=== PATIENT | female | born 1960 | race Caucasian/White ===

== ENCOUNTER 2016-09-27 14:20 | Inpatient (IN) | payer OTHER ==
--- NOTE | ~2016-09-27 | HP ---
History And Physical [place] [address] [facility] [place]. [address] NAME: KALEB ELIZONDO : 56 STATUS : ADM IN [facility]#: [id number] AGE: 56 ADM/REG DATE : 09/27/16 MR#: [id number] REPORT SERV DATE: 09/27/16 DICTATED BY: LEÓN GAN DATE: 09/27/16 REPORT STATUS : Draft TRANSCRIBED BY: MODL DATE: 09/27/16 DATE OF ADMISSION: 09/27/2016 REASON FOR ADMISSION: Shortness of breath. PRIMARY CARE DOCTOR: Unclear, goes to multiple doctors possibly Dr. Schmidt. HISTORY OF PRESENT ILLNESS: This is a pleasant 56-year-old female. She has been smoking for possibly 60 pack years. Still smokes less than a pack a day despite being on home oxygen 2 L in the past year to two years, comes in with significant shortness of breath for past two months, progressive shortness of breath, positive orthopnea, productive cough, wheeze. No recent fevers, chills, nausea, vomiting, diarrhea, chest pain, or chest pressure. She has gone apparently two or three different doctors. She has received prednisone. She has received Zithromax. She has had increased her oxygen up to 4 L. The patient feels that she has pneumonia, increased fatigue. PAST MEDICAL/SURGICAL HISTORY: See above. REVIEW OF SYSTEMS: Done, see HPI. Otherwise, negative. ALLERGIES: NO KNOWN DRUG ALLERGIES. SOCIAL: Continues to smoke at least 60 pack years. No alcohol. No drug use. FAMILY HISTORY: Hypertension at least one parent. HOME MEDICATIONS: See MAR, continue what is relevant. OBJECTIVE: VITAL SIGNS: They are 129/62, 98 temp, 93 pulse, 18 respirations, she was 92% on 2 L. Now, I am putting her up to 3.5 L, she is above 92. GENERAL: No acute distress. HEENT: PERRLA. No scleral icterus. CARDIOVASCULAR: Regular rate and rhythm. No murmur. RESPIRATORY: Bibasilar crackles. Minimal expiratory wheeze. ABDOMEN: Nontender, nondistended. Positive bowel sounds. EXTREMITIES: No edema. No ecchymosis. NEURO: GCS 15. A and O x4. LABS: She has a white count 13,000, hemoglobin 15.6, 212,000 platelets actually. Urinalysis is clean. 4.3 potassium, 145 sodium, 29 bicarb, 0.89 creatinine, 20 BUN, 227 sugar. Albumin 219. LFTs otherwise normal. EKG she has a normal sinus rhythm, PVC. No ischemic ST-T changes. Chest x-ray is a poor film because it looks under penetrated possibly, but it does seem to have bibasilar alveolar infiltration. History And Physical [address] [address] NAME: KALEB ELIZONDO : 56 STATUS : ADM IN PAT#: [id number] AGE: 56 ADM/REG DATE : 09/27/16 MR#: [id number] REPORT SERV DATE: 09/27/16 DICTATED BY: LEÓN GAN DATE: 09/27/16 REPORT STATUS : Draft TRANSCRIBED BY: REGGIE DATE: 09/27/16 ASSESSMENT AND PLAN: 1. Severe sepsis. 2. Due to pneumonia with outpatient treatment failure to Zithromax. 3. Acute on chronic hypoxic respiratory failure. 4. Consideration for possible diabetes given hyperglycemia complicated by steroids. 5. Continued smoking. PLAN: I will go ahead and admit this patient panculture, was on Zithromax, try Levaquin. I do not want to increase the risk of C. diff, so I will give Florastor, Solu-Medrol, Brovana, budesonide. I will also add her home dose of Spiriva. Given her orthopnea, I will also get a BNP. If more than 100, I will diurese her Bumex. She complained to me of defecating while she coughs at times after she had her hysterectomy. From her past surgical history as a result, we will get a CT abdomen and pelvis, consider possible reduced sphincter tone. Influenza swab will be called if it is positive. Get hemoglobin A1c. See rest of my orders. All questions were answered. It took well over 60 minutes to do. Reference [employer] and [employer]. The patient will be in observation. VERONICA/REGGIE León Gan DO / [id number] CC: MD Burke Anne M.D.
--- NOTE | ~2016-09-27 | DS ---
Discharge Summary [facility] [address] [facility] [place]. [address] NAME: KALEB ELIZONDO : 56 STATUS : DIS IN PAT#: [id number] AGE: 56 ADM/REG DATE : 09/27/16 MR#: [id number] REPORT SERV DATE: 10/02/16 DICTATED BY: BURKE PETERSON DATE: 10/01/16 REPORT STATUS : Draft TRANSCRIBED BY: MODL DATE: 10/01/16 ADMISSION DATE: 09/27/2016 DISCHARGE DATE: 10/01/2016 DISCHARGE DIAGNOSES: Include: 1. Severe chronic obstructive pulmonary disease and acute exacerbation with wheezing in the setting of continued tobacco use and chronic home O2 use. 2. Diabetes type 2, with a most recent hemoglobin A1c of 7.9. 3. Hypertension. 4. Hypoalbuminemia. 5. Morbid obesity. 6. Pneumonia has been ruled out. DISCHARGE MEDICATIONS: Are as follows: aspirin 81 mg daily; Wellbutrin XL 300 mg daily, a prescription was written for this; Levaquin 750 mg daily for two more doses; Mei 180 mg daily; Singulair 10 mg daily; Spiriva one capsule inhaled daily; metformin ER 500 mg twice a day; albuterol nebulizers 3 times a day p.r.n. for shortness of breath and wheezing; prednisone 40 mg daily for two more days, prescription was written; Breo Ellipta 200/25 one puff inhaled daily; hydrochlorothiazide 25 mg daily to resume on 10/02/2016; budesonide 2 sprays nasally daily; lisinopril 10 mg daily to start 10/02/2016 prescription was written for this. HISTORY OF PRESENT ILLNESS: A pleasant but unfortunate 56-year-old, female, who presented with worsening shortness of breath. Please see initial H and P of Dr. Timoteo Ocampo, as patient was admitted to the Hospitalist Service for further evaluation and treatment. CONSULTS DURING THIS ADMISSION: Include case management director Dr. Myron Thorpe. PROCEDURES AND IMAGING DURING THIS ADMISSION: Include a CT of the abdomen and pelvis showing no bowel obstruction or inflammation, no mass, lesion or adenopathy within the abdomen or pelvis. Echocardiogram showing an ejection fraction of 50% with some mild diastolic dysfunction. CONTINUATION OF HOSPITAL COURSE: I began seeing this patient on 09/28/2016 where she was continuing to be quite short of breath particularly with exertional dyspnea. She was continuing to wheeze as well. She was continued on her Levaquin, Solu-Medrol, increased O2 requirements, and nebulizer therapy. She underwent the above-described testing, and she made slow improvement with her wheezing and shortness of breath. Consult was placed to Dr. Myron Thorpe who is her outpatient case management director, and he followed her here. Under further review given the negative procalcitonin, lab values, chest x-rays that were not indicative of a pneumonia, and the patient has been afebrile as well, I have ruled out a pneumonia as this is likely just exacerbation of her severe COPD. She was finally able to be weaned back down to 2 L of oxygen which she is currently on at home. I counseled her extensively on need for smoking cessation, and I have added Wellbutrin to her regimen in the Discharge Summary [address] [place]. [address] NAME: KALEB ELIZONDO : 56 STATUS : DIS IN PAT#: [id number] AGE: 56 ADM/REG DATE : 09/27/16 MR#: [id number] REPORT SERV DATE: 10/02/16 DICTATED BY: BURKE PETERSON DATE: 10/01/16 REPORT STATUS : Draft TRANSCRIBED BY: REGGIE DATE: 10/01/16 hopes that this will allow her to fully quit smoking which she was in agreement with. I have also added a lisinopril daily to her regimen given her history of hypertension and diabetes. She has made some clear clinical improvement on 10/01/2016 and was felt safe for discharge home with the above medication regimen and prescriptions, and instructed her to follow up with her primary care, Edwar Schmidt in the next two to three weeks and follow up with Dr. Myron Thorpe as prior scheduled. The patient was in agreement with this plan and so was discharged home. Please note greater than 30 minutes was spent on this discharge for medication teaching, followup planning, and further disposition. LESA/REGGIE Burke Peterson NP / [id number] CC: Sixto Dexter M.D.
--- NOTE | ~2016-09-27 | CN ---
Consultation Report [facility] [address] [place]. [address] NAME: KALEB ELIZONDO : 56 STATUS : ADM [facility]o PAT#: [id number] AGE: 56 ADM/REG DATE : 09/27/16 MR#: [id number] REPORT SERV DATE: 09/29/16 DICTATED BY: CANDICE THORPE DATE: 09/29/16 REPORT STATUS : Draft TRANSCRIBED BY: MODL DATE: 09/29/16 CONSULT DATE OF CONSULTATION: Thank you for the opportunity to consult on this patient. HISTORY OF PRESENT ILLNESS: Ms. Elizondo is a 56-year-old woman well known to our practice. She is followed in our office for her significant COPD on home oxygen complicated by ongoing tobacco abuse, hyperreactive airways disease, and seasonal allergies. She describes that she has been feeling sick for the past month or so. She has had at least 2 outpatient course of oral antibiotics and steroids and recently saw her supervisor quilting as well. Had some of her maintenance medications adjusted but continues to have significant shortness of breath and coughing. She was seen at Dr. Schmidt's office where she was still wheezing with very labored breathing, significant dyspnea despite all the different course of outpatient treatment and was brought to the hospital. She still has significant cough but has not been able to produce much sputum. She has had no persistent fevers, chills, or night sweats though she has had chest tightness, wheezing, and coughing. PAST MEDICAL HISTORY: Significant for COPD with tobacco abuse. She has a [id number] history and has not been able to quit. She is on supplemental oxygen. FAMILY HISTORY: Noncontributory to this acute presentation. SOCIAL HISTORY: As noted above positive for tobacco abuse. REVIEW OF SYSTEMS: Review of 10 systems was performed and is positive for what was noted above. PHYSICAL EXAMINATION: GENERAL: On exam, she is awake and alert, in no acute distress though she has audible variable wheezing even without the stethoscope. HEENT: Normocephalic and atraumatic. NECK: Supple. No lymphadenopathy. No JVD. CHEST: Symmetric with good expansion bilaterally. LUNGS: Her lungs peripherally are surprisingly clear. The wheezing seems to be mostly anterior in upper airway also with some rhonchi. CARDIOVASCULAR: She has S1 and S2 which are regular in rate and rhythm. ABDOMEN: Benign. EXTREMITIES: She has no edema. No clubbing. No cyanosis. ASSESSMENT AND PLAN: Acute exacerbation of chronic obstructive pulmonary disease. She has severe acute exacerbation of chronic obstructive pulmonary disease with failure of response to outpatient treatment. She has inspissated secretions and upper airway secretions and Consultation Report [address] [address] NAME: KALEB ELIZONDO : 56 STATUS : ADM [place] PAT#: [id number] AGE: 56 ADM/REG DATE : 09/27/16 MR#: [id number] REPORT SERV DATE: 09/29/16 DICTATED BY: CANDICE THORPE DATE: 09/29/16 REPORT STATUS : Draft TRANSCRIBED BY: REGGIE DATE: 09/29/16 symptoms in addition to her dyspnea. With her failure of response to outpatient treatment, we agree with initiating broad-spectrum antibiotic therapy. Her procalcitonin level is only 0.08 but again she does have a significant COPD exacerbation and has failed outpatient treatment. She is already on systemic steroids and we will continue to provide her with aggressive bronchodilator therapy and steroids. We appreciate the opportunity to participate in her care with you. Please not hesitate to contact me if I could be of any further assistance. ROB/REGGIE Candice Thorpe M.D. / [id number] CC: Sixto Dexter M.D.
[2016-09-27 13:08] LABS: BASOPHILS 0.2 %; BASOPHILS ABSOLUTE 0.02 10/3/uL (0.0-0.16); EOSINOPHILS 1.2 %; EOSINOPHILS ABSOLUTE 0.15 10/3/uL (0.0-0.53); HEMATOCRIT 50.8 % (36.0-48.0); HEMOGLOBIN 15.6 g/dL (12.0-16.0); IMMATURE GRANULOCYTES 0.5 %; IMMATURE GRANULOCYTES ABSOLUTE 0.06 10/3/uL (0.0-0.11); LYMPHOCYTES 16.7 %; LYMPHOCYTES ABSOLUTE 2.17 10/3/uL (0.67-4.30); MEAN CORPUS HGB CONC 30.7 g/dL (32.0-36.0); MEAN CORPUSCULAR HEMOGLOB 30.5 pg (26.0-34.0); MEAN CORPUSCULAR VOLUME 99.2 fL (80-100); MEAN PLATELET VOLUME 9.9 fL (9.2-13.0); MONOCYTES 4.8 %; MONOCYTES ABSOLUTE 0.63 10/3/uL (0.21-1.20); NEUTROPHILS 76.6 %; PLATELET COUNT 212 10/3/uL (150-400); RBC DISTRIBUTION WIDTH 14.6 % (12.0-16.0); RED CELL COUNT 5.12 10/6/uL (4.0-5.6)
[2016-09-27 13:11] LABS: MANUAL DIFF NO %
[2016-09-27 13:22] LABS: A/G RATIO 0.8 (0.7-1.9); ALBUMIN 2.9 G/DL (3.5-5.0); ALKALINE PHOSPHATASE 51 U/L (45-117); ASCORBIC ACID (UR NOT ORDER) NEG (NEG); BILIRUBIN, URINE NEGATIVE (NEG); BUN (BLOOD UREA NITROGEN) 20 MG/DL (6-23); CALCIUM, SERUM 8.9 MG/DL (8.5-10.4); CHLORIDE, SERUM 101 MMOL/L (96-112); CO2 (CARBON DIOXIDE) 39 MMOL/L (24-34); CREATININE 0.89 MG/DL (0.55-1.02); ER URINALYSIS TAT 0 Hrs 20 Mins; GFR AFRICAN AMERICAN 83 ML/MIN (>=60); GFR NON AFRICAN AMERICAN 71 ML/MIN (>=60); GLUCOSE, SERUM 227 MG/DL (60-99); KETONE, URINE NEGATIVE (NEG); LEUKOCYTE ESTERASE(NOT OR NEG (NEG); NITRITE (URINE) NEG (NEG); POTASSIUM, SERUM 4.3 MMOL/L (3.5-5.3); SGOT(AST) 10 U/L (5-40); SGPT(ALT) 42 U/L (5-65); SODIUM, SERUM 145 MMOL/L (135-148); TOTAL BILIRUBIN 0.4 MG/DL (0-1.2); TOTAL PROTEIN 6.5 G/DL (6.0-8.5); WBC (NOT ORDERED) (RFLEX) 1 (0-5)
[2016-09-27 13:23] LABS: GLOBULIN 3.6 G/DL (2.5-4.1)
[2016-09-27] MEDS ORDERED: ALBUTEROL0.083 % INH (14:50)
[2016-09-27] MEDS ORDERED: ALLEGRA180 PO (14:50)
[2016-09-27] MEDS ORDERED: HALF81 PO (14:51)
[2016-09-27] MEDS ORDERED: BREO ELLIPTA 21 EACH INH (14:51)
[2016-09-27] MEDS ORDERED: HYDROCHLOROT25 MG PO (14:52)
[2016-09-27] MEDS ORDERED: GLUMETZA500 MG PO (14:53)
[2016-09-27] MEDS ORDERED: SINGULAIR1 PO (14:53)
[2016-09-27] MEDS ORDERED: BUDESONIDE 32 MCG NAS (14:59)
[2016-09-27] MEDS ORDERED: SPIRIVA INH (15:00)
[2016-09-27] MEDS ORDERED: VENTOLIN HFA INH (15:01)
[2016-09-27] MEDS ORDERED: P20 PO (15:02)
[2016-09-27] MEDS ORDERED: ZITH250 PO (15:03)
[2016-09-27 18:26] LABS: INFLUENZA A SCREEN NEGATIVE (NEGATIVE); INFLUENZA B SCREEN NEGATIVE (NEGATIVE)
[2016-09-27 18:29] LABS: PROCALCITONIN < 0.05 ng/mL (<0.5)
[2016-09-28 04:39] LABS: A/G RATIO 0.7 (0.7-1.9); ALBUMIN 2.8 G/DL (3.5-5.0); ALKALINE PHOSPHATASE 58 U/L (45-117); CALCIUM, SERUM 8.5 MG/DL (8.5-10.4); CHLORIDE, SERUM 102 MMOL/L (96-112); CO2 (CARBON DIOXIDE) 39 MMOL/L (24-34); CREATININE 1.01 MG/DL (0.55-1.02); GFR AFRICAN AMERICAN 71 ML/MIN (>=60); GFR NON AFRICAN AMERICAN 61 ML/MIN (>=60); GLOBULIN 3.9 G/DL (2.5-4.1); POTASSIUM, SERUM 4.4 MMOL/L (3.5-5.3); SGOT(AST) 13 U/L (5-40); SGPT(ALT) 41 U/L (5-65); SODIUM, SERUM 144 MMOL/L (135-148); TOTAL BILIRUBIN 0.2 MG/DL (0-1.2); TOTAL PROTEIN 6.7 G/DL (6.0-8.5)
[2016-09-28 04:57] LABS: BUN (BLOOD UREA NITROGEN) 24 MG/DL (6-23); GLUCOSE, SERUM 298 MG/DL (60-99)
[2016-09-28 13:54] LABS: PROCALCITONIN 0.08 ng/mL (<0.5)
[2016-09-29 01:56] LABS: BASOPHILS 0.1 %; BASOPHILS ABSOLUTE 0.01 10/3/uL (0.0-0.16); EOSINOPHILS 0 %; HEMATOCRIT 51.3 % (36.0-48.0); HEMOGLOBIN 15.9 g/dL (12.0-16.0); IMMATURE GRANULOCYTES 0.5 %; IMMATURE GRANULOCYTES ABSOLUTE 0.08 10/3/uL (0.0-0.11); LYMPHOCYTES 5.7 %; MEAN CORPUSCULAR HEMOGLOB 29.9 pg (26.0-34.0); MEAN CORPUSCULAR VOLUME 96.6 fL (80-100); MONOCYTES 2.1 %; MONOCYTES ABSOLUTE 0.37 10/3/uL (0.21-1.20); NEUTROPHILS 91.6 %; NEUTROPHILS ABSOLUTE 16.18 10/3/uL (2.02-8.40); PLATELET COUNT 196 10/3/uL (150-400); RBC DISTRIBUTION WIDTH 14.7 % (12.0-16.0); RED CELL COUNT 5.31 10/6/uL (4.0-5.6); WHITE BLOOD CELLS 17.6 10/3/uL (4.5-10.5)
[2016-09-29 01:57] LABS: MANUAL DIFF NO %
[2016-09-30 04:50] LABS: BASOPHILS 0.1 %; BASOPHILS ABSOLUTE 0.01 10/3/uL (0.0-0.16); EOSINOPHILS 0 %; HEMATOCRIT 49.9 % (36.0-48.0); HEMOGLOBIN 14.9 g/dL (12.0-16.0); IMMATURE GRANULOCYTES 0.4 %; IMMATURE GRANULOCYTES ABSOLUTE 0.06 10/3/uL (0.0-0.11); LYMPHOCYTES 10.9 %; LYMPHOCYTES ABSOLUTE 1.72 10/3/uL (0.67-4.30); MEAN CORPUS HGB CONC 29.9 g/dL (32.0-36.0); MEAN CORPUSCULAR HEMOGLOB 29.6 pg (26.0-34.0); MEAN CORPUSCULAR VOLUME 99.2 fL (80-100); MONOCYTES 7.4 %; MONOCYTES ABSOLUTE 1.18 10/3/uL (0.21-1.20); NEUTROPHILS 81.2 %; NEUTROPHILS ABSOLUTE 12.87 10/3/uL (2.02-8.40); PLATELET COUNT 195 10/3/uL (150-400); RED CELL COUNT 5.03 10/6/uL (4.0-5.6); WHITE BLOOD CELLS 15.8 10/3/uL (4.5-10.5)
[2016-09-30 04:56] LABS: MANUAL DIFF NO %
[2016-09-30 05:10] LABS: CALCIUM, SERUM 8.5 MG/DL (8.5-10.4); CHLORIDE, SERUM 101 MMOL/L (96-112); CO2 (CARBON DIOXIDE) 39 MMOL/L (24-34); GFR AFRICAN AMERICAN 111 ML/MIN (>=60); GFR NON AFRICAN AMERICAN 96 ML/MIN (>=60); POTASSIUM, SERUM 4.5 MMOL/L (3.5-5.3); SODIUM, SERUM 144 MMOL/L (135-148)
[2016-09-30 05:12] LABS: BUN (BLOOD UREA NITROGEN) 31 MG/DL (6-23); GLUCOSE, SERUM 155 MG/DL (60-99)
[2016-10-01] MEDS ORDERED: WELLXL300 PO (12:43)
[2016-10-01] MEDS ORDERED: LEVAQUIN750 MG PO (12:44)
[2016-10-01] MEDS ORDERED: PRIN10 PO (12:49)
== END 2016-10-01 13:59 | disposition home or self-care (01) | DRG 189 ==
LOC: ER 14:20 → 7NO 14:38 → CDU1 15:12 → CDU2 16:16 → 6NO 09-28 14:15
PROVIDERS: Emergency Medicine; Internal Medicine; Nurse Practitioner Family
DX: J96.21 Acute and chronic respiratory failure with hypoxia (principal); Z99.81 Dependence on supplemental oxygen; E11.65 Type 2 diabetes mellitus with hyperglycemia; J44.1 Chronic obstructive pulmonary disease with (acute) exacerbation; Z68.41 Body mass index [BMI] 40.0-44.9, adult; I10 Essential (primary) hypertension; T38.0X5A Adverse effect of glucocorticoids and synthetic analogues, initial encounter; E66.01 Morbid (severe) obesity due to excess calories; F17.210 Nicotine dependence, cigarettes, uncomplicated; Z79.82 Long term (current) use of aspirin; Z82.49 Family history of ischemic heart disease and other diseases of the circulatory system
CPT/HCPCS: 71010; 74176; 80048; 80053; 81001; 82962; 83036; 83880; 84145; 84443; 84484; 85025; 87040; 87070; 87205; 87449; 87493; 87493-59; 87804; 93005; 94640; 94667; 94668; 96374; 99291; A9270-GY; C8929; J1956; J2920; J2930; Q9957